=== PATIENT | female | born 1990 | race Caucasian/White ===

== ENCOUNTER 2019-04-20 16:46 | Emergency (ER) | payer MEDICAID ==
[~2019-04-20] VITALS: Ht 157.5 cm; Wt 52.3 kg
[2019-04-20] MEDS ORDERED: proCHLORperazine 10 MG/2 ml inj IV ONE (17:00)
[2019-04-20] MEDS ORDERED: LORazepam 2 mg/ml vial IV ONE ×2 (17:00→19:10)
[2019-04-20] MEDS ORDERED: normal saline 1000ML IV soln IVB ONE (17:00)
[2019-04-20] MEDS: morphine 4 MG/ML inj SYRINge IV PRN ×3 (17:14→20:12)
[2019-04-20 17:46] LABS: BASOPHILS % (AUTO) 0.1 % (0-1); EOSINOPHILS % (AUTO) 0 % (0-6); HEMATOCRIT 30.8 % (35.0-45.0); HEMOGLOBIN 10.7 g/dl (12.0-16.0); LYMPHOCYTES # (AUTO) 0.4 X10'3 (1.1-4.8); LYMPHOCYTES % (AUTO) 6.3 % (21-51); MEAN CORPUSCULAR HEMOGLOBIN 32.9 PG (27.0-31.0); MEAN CORPUSCULAR HGB CONC 34.8 g/dL (33.0-36.5); MEAN CORPUSCULAR VOLUME 94.7 FL (78-98); MEAN PLATELET VOLUME 6.5 FL (7.4-10.4); MONOCYTES # (AUTO) 0.3 X10'3 (0-0.9); MONOCYTES % (AUTO) 4.7 % (2-12); NEUTROPHILS # (AUTO) 5.2 X10'3 (1.8-7.7); NEUTROPHILS % (AUTO) 88.9 % (42-75); PLATELET COUNT 301 X10'3 (140-440); RED BLOOD COUNT 3.26 X10'6 (4.20-5.60); RED CELL DISTRIBUTION WIDTH 14.2 % (11.5-14.5); WHITE BLOOD COUNT 5.8 X10'3 (4.5-11.0)
[2019-04-20 17:59] LABS: ALANINE AMINOTRANSFERASE 25 U/L (12-78); ALBUMIN 3.2 G/DL (3.4-5.0); ALBUMIN/GLOBULIN RATIO 0.9 (1.1-1.5); ALKALINE PHOSPHATASE 46 IU/L (46-116); ANION GAP 10 (8-16); ASPARTATE AMINO TRANSFERASE 17 U/L (10-37); BILIRUBIN,TOTAL 0.2 MG/DL (0.1-1.0); BLOOD UREA NITROGEN 9 MG/DL (7-18); BUN/CREATININE RATIO 16.7 (6.6-38.0); CALCIUM 7.6 MG/DL (8.5-10.1); CHLORIDE 105 MMOL/L (99-107); CREATININE 0.54 MG/DL (0.40-0.90); GLUCOSE 115 MG/DL (70-104); LIPASE 51 U/L (73-393); POTASSIUM 3.2 MMOL/L (3.5-5.1); SODIUM 140 MMOL/L (135-145); TOTAL CARBON DIOXIDE 25.3 MMOL/L (24-32); TOTAL PROTEIN 6.6 G/DL (6.4-8.2); eGFR > 90 ML/MIN
[2019-04-20 18:30] LABS: CLARITY,URINE SLIGHTLY CLOUDY (Clear); COLOR,URINE YELLOW (Yellow); GLUCOSE, URINE NEGATIVE (Neg); KETONES,URINE 15 mg/dl (Neg); LEUKOCYTE ESTERASE ,URINE NEGATIVE (Neg); NITRITES, URINE NEGATIVE (Neg); OCCULT BLOOD,URINE TRACE-INTACT (Neg); PROTEIN,URINE 30 mg/dl (Neg); UA COLLECTION TYPE NON-SPECIFIED; UROBILINOGEN,URINE 0.2 E.U/dL (0.2-1.0)
[2019-04-20] MEDS ORDERED: ketorolac trometh. 30mg/ml inj. IV ONE (18:30)
[2019-04-20 18:37] LABS: MUCUS STRANDS MANY /LPF (Neg); SQUAMOUS EPITHELIAL CELL,UR MANY /LPF (FEW)
[2019-04-20 18:38] LABS: BACTERIA,URINE FEW /HPF (Neg); WBC,URINE 0-4 /HPF (0-4)
[2019-04-20] MEDS ORDERED: potassium Cl oral solution 20 MEQ/15 ML PO ONE (19:05)
[2019-04-20] MEDS ORDERED: dexamethasone sod phosphate 10mg/ml inj IV STA (19:07)
--- NOTE | 2019-04-20 20:46 | NUR ---
CALL OUT TO PT'S SISTER TO COME PICK HER UP
[2019-04-20 21:31] VITALS: BP 133/92
== END 2019-04-20 21:55 | disposition home or self-care (01) ==
LOC: ER 16:47
DX: G43.A0 Cyclical vomiting, in migraine, not intractable (principal); R10.30 Lower abdominal pain, unspecified; R10.84 Generalized abdominal pain; K21.9 Gastro-esophageal reflux disease without esophagitis; Z90.49 Acquired absence of other specified parts of digestive tract; Z56.0 Unemployment, unspecified; Z88.5 Allergy status to narcotic agent; Z76.5 Malingerer [conscious simulation]; Z88.8 Allergy status to other drugs, medicaments and biological substances
CPT/HCPCS: 36415; 80053; 81001; 83690; 85025; 96374; 96375; 96376; 99283; J0780; J1100; J1885; J2060; J2270; J7030; 99284

== ENCOUNTER 2019-04-22 04:46 | Emergency (ER) | payer MEDICAID ==
[~2019-04-22] VITALS: Ht 160 cm; Wt 50.0 kg
[2019-04-22] MEDS ORDERED: ondansetron/PF 4mg/2ml inj IV ONE (05:00)
[2019-04-22] MEDS ORDERED: normal saline 1000ML IV soln IVB ONE (05:00)
[2019-04-22 06:08] LABS: BASOPHILS % (AUTO) 0.1 % (0-1); EOSINOPHILS % (AUTO) 0 % (0-6); HEMATOCRIT 32.2 % (35.0-45.0); HEMOGLOBIN 11.3 g/dl (12.0-16.0); LYMPHOCYTES # (AUTO) 1.2 X10'3 (1.1-4.8); LYMPHOCYTES % (AUTO) 16.4 % (21-51); MEAN CORPUSCULAR HEMOGLOBIN 33.2 PG (27.0-31.0); MEAN CORPUSCULAR HGB CONC 35.2 g/dL (33.0-36.5); MEAN CORPUSCULAR VOLUME 94.4 FL (78-98); MEAN PLATELET VOLUME 6.8 FL (7.4-10.4); MONOCYTES # (AUTO) 0.7 X10'3 (0-0.9); MONOCYTES % (AUTO) 10.1 % (2-12); NEUTROPHILS # (AUTO) 5.4 X10'3 (1.8-7.7); NEUTROPHILS % (AUTO) 73.4 % (42-75); PLATELET COUNT 331 X10'3 (140-440); WHITE BLOOD COUNT 7.4 X10'3 (4.5-11.0)
[2019-04-22 07:25] LABS: ALANINE AMINOTRANSFERASE 29 U/L (12-78); ALBUMIN 3.2 G/DL (3.4-5.0); ALKALINE PHOSPHATASE 52 IU/L (46-116); ANION GAP 9 (8-16); ASPARTATE AMINO TRANSFERASE 17 U/L (10-37); BILIRUBIN,TOTAL 0.3 MG/DL (0.1-1.0); BLOOD UREA NITROGEN 9 MG/DL (7-18); BUN/CREATININE RATIO 14.1 (6.6-38.0); CALCIUM 8.2 MG/DL (8.5-10.1); CHLORIDE 102 MMOL/L (99-107); CREATININE 0.64 MG/DL (0.40-0.90); GLUCOSE 105 MG/DL (70-104); LIPASE 61 U/L (73-393); SODIUM 139 MMOL/L (135-145); TOTAL CARBON DIOXIDE 27.8 MMOL/L (24-32); TOTAL PROTEIN 6.5 G/DL (6.4-8.2); eGFR > 90 ML/MIN
[2019-04-22 07:26] LABS: POTASSIUM 2.8 MMOL/L (3.5-5.1)
--- NOTE | 2019-04-22 07:27 | NUR ---
k 2.8,dr. redman made aware.
[2019-04-22] MEDS ORDERED: potassium 10mEq/100ml NS w/LIDOcaine (10mg/bag) IV ONE (07:35)
[2019-04-22] MEDS ORDERED: potassium Cl 20 mEq SR tablet PO ONE (07:35)
[2019-04-22] MEDS ORDERED: potassium Cl 10 mEq/100mL bag IV ONE (07:45)
[2019-04-22 08:41] VITALS: BP 140/95
--- NOTE | 2019-04-22 09:10 | NUR ---
Pt ambulated from ER side over to overflow bed 23. Pt attempting to give urine sample. Belongings collected and pt to change into green scrubs.
[2019-04-22] MEDS ORDERED: QUET-1 PO (09:45)
[2019-04-22] MEDS ORDERED: ALPR-624 PO (09:45)
--- NOTE | 2019-04-22 09:48 | NUR ---
Spoke with pt who is requesting medication for anxiety. [facility] in [place] called and verified pt's current medication. Reviewed information with Dr. Calderon. Decision to wait until pt seen by psychiatry before ordering additional medication at this time. Psychiatry notified and they will be seeing patient later today.
--- NOTE | 2019-04-22 11:00 | NUR ---
pt continues to behave dramatically. Pt sister called and verified that for the past ten years the pt has been doctor shopping in [place] to get pain medications and benzodiazepines.
[2019-04-22 11:08] LABS: URINE HCG NEGATIVE (NEG)
[2019-04-22 11:23] LABS: URINE AMPHETAMINE SCREEN NEGATIVE (Neg); URINE BARBITUATE SCREEN NEGATIVE (Neg); URINE BENZODIAZEPINES SCREEN NEGATIVE (Neg); URINE CANNABINOID SCREEN POSITIVE (Neg); URINE COCAINE SCREEN NEGATIVE (Neg); URINE METHADONE SCREEN NEGATIVE (Neg); URINE OPIATE SCREEN POSITIVE (Neg); URINE PHENCYCLIDINE SCREEN NEGATIVE (Neg)
--- NOTE | 2019-04-22 13:27 | NUR ---
Pt discharged at 1323 to self. Pt evaluated by psychiatric provider, Cleveland COSTA who determined pt not to be meeting 5150 criteria. Pt denies S.I. and voices desire to go home. Pt escorted from unit by security.
== END 2019-04-22 13:23 | disposition home or self-care (01) ==
LOC: ER 04:46
DX: R11.10 Vomiting, unspecified (principal); F32.9 Major depressive disorder, single episode, unspecified; K21.9 Gastro-esophageal reflux disease without esophagitis; Z90.49 Acquired absence of other specified parts of digestive tract; Z56.0 Unemployment, unspecified; Z88.5 Allergy status to narcotic agent
CPT/HCPCS: 36415; 80053; 80305; 80320; 81025; 83690; 85025; 96361; 96374; 99283; J2405; J3480; J7030